=== PATIENT | female | born 2000 ===

== ENCOUNTER 2022-01-26 15:14 | Emergency (ER) | payer SELFPAY ==
[2022-01-26] MEDS ORDERED: Ciprofloxacin 500 MG Tab PO ONE ×2 (15:15→17:20)
[2022-01-26] MEDS ORDERED: Sodium Chloride 0.9% 10 ML Syringe FLUSH PRN (16:09)
[2022-01-26] MEDS ORDERED: Sodium Chloride 0.9% 1,000 ML IV ONE (16:10)
[2022-01-26] MEDS ORDERED: Ondansetron 4 MG/2 ML SDV IVPUSH ONE (16:11)
[2022-01-26 16:43] LABS: ANION GAP 13.1 mEq/L (7-13); CHLORIDE,CL 103 mmol/L (98-107); SODIUM,NA 141 mmol/L (136-145)
[2022-01-26] MEDS ORDERED: Ciprofloxacin 500 MG Tab ONE (17:26)
== END 2022-01-26 17:34 | disposition home or self-care (01) ==
LOC: DL.ED 15:14
DX: N30.01 Acute cystitis with hematuria (principal)
CPT/HCPCS: 36415; 80053; 81001; 81025; 83605; 83690; 83735; 85025; 86140; 87086; 96374; 99283; 99284-25; A9270-GY; J2405; J3490; J7030